=== PATIENT | female | born 1975 | race American Indian/Alaskan Native ===

== ENCOUNTER 2017-09-14 22:08 | Emergency (ER) | payer SELFPAY ==
[2017-09-14] MEDS ORDERED: WATER FOR IRRIG STERILE IR ONE (22:52)
[2017-09-14] MEDS ORDERED: MOTRIN PO ONE (22:53)
[2017-09-14] MEDS ORDERED: TYLENOL PO ONE (22:53)
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
[2017-09-14] MEDS ORDERED: BOOSTRIX IM ONE (22:54)
[2017-09-14] MEDS ORDERED: ANTIBIOTIC OINT TP ONE (23:11)
[2017-09-14 23:51] VITALS: BP 135/78
== END 2017-09-15 01:58 | disposition home or self-care (01) ==
LOC: ED 22:08
DX: T21.24XA Burn of second degree of lower back, initial encounter (principal); T21.13XA Burn of first degree of upper back, initial encounter; T79.9XXA Unspecified early complication of trauma, initial encounter; X12.XXXA Contact with other hot fluids, initial encounter; Y93.89 Activity, other specified; Y92.89 Other specified places as the place of occurrence of the external cause; Y99.8 Other external cause status
CPT/HCPCS: 90471; 90715; 99282